=== PATIENT | male | born 1980 | race Caucasian/White ===

== ENCOUNTER 2020-08-05 20:09 | Emergency (ER) | payer OTHER, SELFPAY ==
[2020-08-05 20:50] VITALS: BP 147/93; PULSE 96; RESP 20; TEMP 37.2; O2SAT 95
--- NOTE | 2020-08-05 21:07 | ED.DENTAL ---
HPI - Dental/Oral General Chief complaint: Dental/Oral Stated complaint: dental pain Time Seen by Provider: 08/05/20 20:13 Source: patient Mode of arrival: ambulatory Limitations: no limitations History of Present Illness HPI Narrative: This patient is a 40 year old male who presents for evaluation of left upper dental pain. PAtient states 2 weeks ago he broke his tooth on his upper left molar. He reports he developed severe pain 2 days ago. He was evaluated at [facility] [place] today, and he was prescribed clindamycin. He states he is having too much pain to take antibiotics and they did not prescribe him pain medication at [place]. He reports he has taken approximately 25 pills of tylenol today for his pain. He reports nausea. He reports left upper abdominal pain, but he states this is chronic. MD Complaint: tooth pain Related Data Allergies Allergy/AdvReac Type Severity Reaction Status Date / Time Penicillins Allergy Mild Rash Verified 08/05/20 20:14 Review of Systems Review of Systems: All systems reviewed & are unremarkable except as noted in HPI and below PMFSH Past Medical History Medical History (Updated 08/06/20 @ 00:41 by Vanesa Alexis MD) Conway esophagus Social History Social History (Updated 08/05/20 @ 21:10 by Vanesa Alexis MD) Smoking packs per day: 1 Smoking cigarettes per day: 20.0 Smoking status: Current every day smoker Exam Const: General: alert Orientation/consciousness: patient oriented x3 HENMT: Head: normocephalic and atraumatic Face and sinus: face symmetric Mouth: Yes lip normal, Yes oropharynx normal and Yes moist mucous membranes Teeth and gingiva: abnormal tooth and associated gingiva (#15) and poor dentition Throat: posterior oropharynx normal, tonsils normal and uvula midline Eyes: EOM: EOMs intact bilaterally Resp: Effort & Inspection: normal respiratory effort and no retractions Auscultation: clear to auscultation bilaterally Cardio: Rate: regular rate Rhythm: regular rhythm Heart sounds: no murmurs Skin: General skin exam: normal color Rashes: no rashes Neuro: General: patient oriented x3 and moves all extremities Course Reevaluation(s) Reevaluation #1: I discussed patient that he is taking too much tylenol. He will continue to take clindamycin Date: 08/06/20 Time: 00:39 Vital Signs Vital signs: Vital Signs Temperature 99 F 08/05/20 20:50 Pulse Rate 96 08/05/20 20:50 Respiratory Rate 20 08/05/20 20:50 Blood Pressure 147/93 H 08/05/20 20:50 Pulse Oximetry 95 08/05/20 20:50 Temperature 99 F 08/05/20 20:50 Pulse Rate 85 08/05/20 22:57 Respiratory Rate 18 08/05/20 22:57 Blood Pressure 158/94 H 08/05/20 22:57 Pulse Oximetry 95 08/05/20 22:57 MDM - Dental/Oral Lab Data Result diagrams: 08/05/20 21:03 08/05/20 21:03 Labs: Lab Results 08/05/20 08/05/20 08/05/20 Range/Units 21:03 21:03 21:03 WBC 14.7 H (4.5-10.0) K/mm3 RBC 4.69 (4.6-6.20) M/mm3 Hgb 14.8 (14.0-18.0) g/dL Hct 42.3 (42.0-52.0) % MCV 90.2 (80-100) fl MCH 31.6 (26-34) pg MCHC 35.0 (32-36) g/dl RDW 13.3 (11.5-14.5) % Plt Count 354 (150-375) k/mm3 MPV 10.4 (7.4-10.4) fl Immature Gran % (Auto) 0.5 (0-0.5) % Neut % (Auto) 82.8 H (45.5-73.1) % Lymph % (Auto) 8.9 L (18.3-44.2) % [place] % (Auto) 5.8 (2.6-8.5) % Eos % (Auto) 1.6 (0-4.4) % Baso % (Auto) 0.4 (0.2-1.2) % Lymph # (Auto) 1.31 (0.9-3.2) K/mm3 [place] # (Auto) 0.9 H (0.1-0.6) K/mm3 Eos # (Auto) 0.2 (0-0.3) K/mm3 Baso # (Auto) 0.1 (0.0-0.1) K/mm3 Abs Immat Gran (auto) 0.07 H (0.00-0.031) K/mm3 Absolute Neuts (auto) 12.2 H (1.3-6.7) K/mm3 Absolute Nucleated RBC 0.0 (0.0-0.012) K/mm3 Nucleated RBC % 0.0 (0.0-0.2) % PT (11.1-14.7) Seconds INR APTT (22.3-36.8) SECONDS Sodium 140 (137-145) mmol/L Potassium 4.1 (3.4-5.0)
[2020-08-05 21:09] LABS: Basophils Absolute Auto 0.1 K/mm3 (0.0-0.1); Basophils Percent Auto 0.4 % (0.2-1.2); Eosinophils Absolute Auto 0.2 K/mm3 (0-0.3); Eosinophils Percent Auto 1.6 % (0-4.4); Hematocrit 42.3 % (42.0-52.0); Hemoglobin 14.8 g/dL (14.0-18.0); Immature Granulocyte Absolute 0.07 K/mm3 (0.00-0.031); Immature Granulocyte Percent A 0.5 % (0-0.5); Lymphocytes Absolute Auto 1.31 K/mm3 (0.9-3.2); Lymphocytes Percent Auto 8.9 % (18.3-44.2); Mean Corpuscular Hemoglobin 31.6 pg (26-34); Mean Corpuscular Volume 90.2 fl (80-100); Mean Platelet Volume 10.4 fl (7.4-10.4); Monocytes Absolute Auto 0.9 K/mm3 (0.1-0.6); Monocytes Percent Auto 5.8 % (2.6-8.5); Neutrophils Absolute Auto 12.2 K/mm3 (1.3-6.7); Neutrophils Percent Auto 82.8 % (45.5-73.1); Platelet Count Result 354 k/mm3 (150-375); Red Blood Count 4.69 M/mm3 (4.6-6.20); Red Cell Distribution Width 13.3 % (11.5-14.5); White Blood Count 14.7 K/mm3 (4.5-10.0)
[2020-08-05 21:20] LABS: Acetaminophen < 10 ug/mL (10-30); INR 1.1; Prothrombin Time 13.8 Seconds (11.1-14.7)
[2020-08-05 21:21] LABS: Alanine Aminotransferase 29 U/L (4-50); Albumin Level 4.4 g/dL (3.5-5.1); Alkaline Phosphatase 83 U/L (38-126); Anion Gap 11 mmol/L (8-16); Aspartate Amino Transferase 23 U/L (17-59); Bilirubin,Total 0.5 mg/dL (0.2-1.3); Blood Urea Nitrogen 15 mg/dL (9-20); Calcium 9.2 mg/dL (8.4-10.2); Carbon Dioxide 25 mmol/L (22-30); Chloride 104 mmol/L (98-107); Estimated CRCL calculation 329 ml/min; Estimated Glomerular Filt Rate > 60; Glucose 246 mg/dL (75-110); Potassium 4.1 mmol/L (3.4-5.0); Sodium 140 mmol/L (137-145)
[2020-08-05] MEDS: HYDROmorphone HCL INJ (*CRX) 1 MG/ML SYR IM (21:28)
[2020-08-05] MEDS: ONDANSETRON HCL ODT 4 MG TABLET PO (21:29)
[2020-08-05] MEDS: CLINDAMYCIN HCL 150 MG CAP 450 MG PO (22:10)
[2020-08-05 22:57] VITALS: BP 158/94; PULSE 85; RESP 18; O2SAT 95
[2020-08-06 00:19] LABS: Acetaminophen < 10 ug/mL (10-30)
== END 2020-08-06 01:28 | disposition home or self-care (01) ==
PROVIDERS: Emergency Provider General Practice
DX: K04.7 Periapical abscess without sinus (principal); K03.81 Cracked tooth; K22.70 Barrett's esophagus without dysplasia; F17.210 Nicotine dependence, cigarettes, uncomplicated
CPT/HCPCS: 36415; 80053; 80307; 85025; 85610; 85730; 96372; 99283; A9270; J1170

== ENCOUNTER 2021-06-23 23:45 | Emergency (ER) | payer OTHER, SELFPAY ==
--- NOTE | ~2021-06-23 | XR_ITS ---
XR chest 2V DATE: 06/24/2021 00:27 INDICATION: Lower chest pain TECHNIQUE: PA and lateral views COMPARISON: None FINDINGS: Normal heart size. No hilar or mediastinal enlargement. No pulmonary infiltrate or consolid ation, pleural effusion or pulmonary vascular congestion or pneumothorax. IMPRESSION: No active cardiopulmonary disease Reviewed, dictated and finalized at location A.
[2021-06-23 23:45] VITALS: BP 165/112; PULSE 115; RESP 15; TEMP 36.8; O2SAT 100
--- NOTE | 2021-06-23 23:47 | ECG_ITS ---
Measurements Intervals [place] Rate: 101 P: 30 NV: 136 QRS: 58 QRSD: 102 T: -5 QT: 337 QTc: 438 Interpretive Statements SINUS TACHYCARDIA BORDERLINE ST-T WAVE ABNORMALITY- INFERIOR LEADS BORDERLINE ECG Electronically Signed On 06-27-2021 10:07:59 CDT by Stephen Montelongo D.O.
[2021-06-23 23:48] VITALS: PULSE 117; RESP 17; O2SAT 97
[2021-06-23 23:49] VITALS: PULSE 109; RESP 15; O2SAT 99
[2021-06-24] VITALS (20 sets, daily range): BP systolic 121–134; BP diastolic 75–83; PULSE 75–99; RESP 11–26; O2SAT 90–98
--- NOTE | 2021-06-24 00:10 | ECG_ITS ---
Measurements Intervals [place] Rate: 88 P: 23 HI: 150 QRS: 50 QRSD: 102 T: -2 QT: 340 QTc: 412 Interpretive Statements SINUS RHYTHM BORDERLINE ST-T WAVE ABNORMALITY- INFERIOR LEADS BORDERLINE ECG Electronically Signed On 06-24-2021 6:51:37 CDT by Stephen Montelongo D.O.
[2021-06-24 01:07] LABS: Alanine Aminotransferase 30 U/L (4-50); Albumin Level 4.3 g/dL (3.5-5.1); Alkaline Phosphatase 73 U/L (38-126); Anion Gap 6 mmol/L (8-16); Aspartate Amino Transferase 23 U/L (17-59); Bilirubin,Total 0.3 mg/dL (0.2-1.3); Blood Urea Nitrogen 16 mg/dL (9-20); Calcium 9.3 mg/dL (8.4-10.2); Carbon Dioxide 24 mmol/L (22-30); Chloride 103 mmol/L (98-107); Estimated CRCL calculation 184 ml/min; Estimated Glomerular Filt Rate > 60; Glucose 248 mg/dL (65-110); Lipase 45 U/L (23-300); Potassium 4.1 mmol/L (3.4-5.0); Sodium 133 mmol/L (137-145)
[2021-06-24 01:10] LABS: Basophils Absolute Auto 0.1 K/mm3 (0.0-0.1); Basophils Percent Auto 0.5 % (0.2-1.2); Eosinophils Absolute Auto 0.2 K/mm3 (0-0.3); Eosinophils Percent Auto 1.9 % (0-4.4); Hematocrit 44.4 % (42.0-52.0); Hemoglobin 15.1 g/dL (14.0-18.0); Immature Granulocyte Absolute 0.04 K/mm3 (0.00-0.031); Immature Granulocyte Percent A 0.4 % (0-0.5); Lymphocytes Absolute Auto 2.35 K/mm3 (0.9-3.2); Lymphocytes Percent Auto 21.7 % (18.3-44.2); Mean Corpuscular Hemoglobin 31.7 pg (26-34); Mean Corpuscular Volume 93.1 fl (80-100); Mean Platelet Volume 10.1 fl (7.4-10.4); Monocytes Absolute Auto 0.8 K/mm3 (0.1-0.6); Monocytes Percent Auto 7.8 % (2.6-8.5); Neutrophils Absolute Auto 7.3 K/mm3 (1.3-6.7); Neutrophils Percent Auto 67.7 % (45.5-73.1); Platelet Count Result 337 k/mm3 (150-375); Red Blood Count 4.77 M/mm3 (4.6-6.20); White Blood Count 10.8 K/mm3 (4.5-10.0)
[2021-06-24 01:18] LABS: Troponin I < 0.012 ng/mL (0.000-0.034)
--- NOTE | 2021-06-24 03:24 | ED.GENADULT ---
HPI - General Adult General Chief complaint: Abdominal Pain Stated complaint: abd pain with chest pain Time Seen by Provider: 06/23/21 23:51 History of Present Illness HPI narrative: Patient is a 41-year-old male who presents ER with sudden onset abdominal cramping. Began just hour prior to arrival. Went up into his chest and then to his left shoulder and neck. Reports this is been happening to him intermittently for the last 10 years. He sees a GI doctor. Denies that he has a formal diagnosis. He is prescribed dicyclomine and pantoprazole at home. Symptoms resolved with nitroglycerin in route by EMS. Related Data Home Medications Medication Instructions Recorded Confirmed dicyclomine mg 06/23/21 pantoprazole PO 06/23/21 sitagliptin [Januvia] mg 06/23/21 Allergies Allergy/AdvReac Type Severity Reaction Status Date / Time Penicillins Allergy Mild Rash Verified 06/23/21 23:53 metformin AdvReac Abdominal Verified 06/23/21 23:53 Pain Review of Systems Review of Systems: All systems reviewed & are unremarkable except as noted in HPI and below Constitutional: Constitutional: Denies chills, Denies fever(s) and Denies weakness ENT: Denies nasal congestion and Denies sore throat Cardiovascular: Cardiovascular: Reports chest pain, Reports rapid heart rate and Reports radiating jaw, neck or arm pain Respiratory: Respiratory: Denies cough and Denies dyspnea Gastrointestinal: Gastrointestinal: Reports abdominal pain, Reports nausea and Denies vomiting PMFSH Past Medical History Medical History (Updated 06/24/21 @ 03:31 by Rohan Lucas MD) Conway esophagus Surgical History Surgical History (Updated 06/24/21 @ 06:39 by Rohan Lucas MD) History of esophagogastroduodenoscopy (EGD) Social History Social History (Updated 08/05/20 @ 21:10 by Vanesa Alexis MD) Smoking packs per day: 1 Smoking cigarettes per day: 20.0 Smoking status: Current every day smoker Exam Narrative: GENERAL: Well-appearing, well-nourished, and in no acute distress. HEAD: Normocephalic, atraumatic. ENT: Mucous membranes moist. CHEST: Clear to auscultation. No respiratory distress. HEART: Regular rate and rhythm. Normal peripheral pulses. ABDOMEN: Soft, nontender, nondistended. EXTREMITIES: Normal range of motion. No edema. SKIN: Warm, dry, no rash. NEURO: Alert and oriented x3. PSYCH: Normal mood and affect. Course Reevaluation(s) Reevaluation #1: Patient has informed nursing staff he would like to leave AGAINST MEDICAL ADVICE. He does not want to wait for second troponin as he is feeling well and he would like to go home so his can go to work and he can watch the children. He has signed paperwork after being informed of risks. Date: 06/24/21 Time: 03:32 Vital Signs Vital signs: Vital Signs Temperature 98.3 F 06/23/21 23:45 Pulse Rate 115 H 06/23/21 23:45 Respiratory Rate 15 06/23/21 23:45 Blood Pressure 165/112 H 06/23/21 23:45 Pulse Oximetry 100 06/23/21 23:45 Temperature 98.3 F 06/23/21 23:45 Pulse Rate 75 06/24/21 03:10 Respiratory Rate 20 06/24/21 03:10 Blood Pressure 130/75 06/24/21 03:10 Pulse Oximetry 98 06/24/21 03:10 Medical Decision Making Vital Signs Vital Signs: Vital Signs Temperature 98.3 F 06/23/21 23:45 Pulse Rate 115 H 06/23/21 23:45 Respiratory Rate 15 06/23/21 23:45 Blood Pressure 165/112 H 06/23/21 23:45 Pulse Oximetry 100 06/23/21 23:45 Temperature 98.3 F 06/23/21 23:45 Pulse Rate 75 06/24/21 03:10 Respiratory Rate 20 06/24/21 03:10 Blood Pressure 130/75 06/24/21 03:10 Pulse Oximetry 98 06/24/21 03:10 Lab Data Result diagrams: 06/24/21 00:47 06/24/21 00:47 Labs: Lab Results 06/24/21 06/24/21 Range/Units 00:47 00:47 WBC 10.8 H (4.5-10.0) K/mm3 RBC 4.77 (4.6-6.20) M/mm3 Hgb 15.1 (14.0-18.0) g/dL Hct 44.4 (42.0-52.0) % MCV 93.1
== END 2021-06-24 03:27 | disposition left against medical advice (07) ==
PROVIDERS: Emergency Provider Emergency Medicine
DX: R07.9 Chest pain, unspecified (principal); R10.13 Epigastric pain; F17.210 Nicotine dependence, cigarettes, uncomplicated
CPT/HCPCS: 36415; 71046; 80053; 83690; 84484; 85025; 93005; 99284